=== PATIENT | male | born 1970 | race African-American/Black ===

== ENCOUNTER → 2017-11-11 | Outpatient (CLI) | payer OTHER ==
[2017-11-11 14:01] LABS: BASO % 0.3 % (0.0-1.0); EOS # 0.3 10^3/uL (0.0-0.50); EOS % 4.5 % (0.0-3.0); HEMATOCRIT 42.9 % (42.0-52.0); HEMOGLOBIN 14.4 g/dl (14.0-18.0); IMMATURE GRANULOCYTE % 0.3 % (0-3.0); LYMPH # 2.4 10^3/uL (1.5-4.5); LYMPH % 36.8 % (24.0-44.0); MEAN CORPUSCULAR HEMOGLOBIN 29.6 pg (27.0-33.0); MEAN CORPUSCULAR HGB CONC 33.6 g/dl (32.0-36.5); MEAN CORPUSCULAR VOLUME 88.3 fl (80.0-96.0); MONO # 0.4 10^3/uL (0.0-0.8); MONO % 6.3 % (0.0-5.0); NEUTROPHILS # 3.4 10^3/uL (1.8-7.7); NEUTROPHILS % 51.8 % (36.0-66.0); PLATELET COUNT, AUTOMATED 323 10^3/uL (150-450); RED BLOOD COUNT 4.86 10^6/uL (4.30-6.10); WHITE BLOOD COUNT 6.5 10^3/uL (4.0-10.0)
[2017-11-11 14:24] LABS: TOTAL 25(OH) VITAMIN D 30.2 NG/ML (30.0-100.0)
[2017-11-11 14:46] LABS: ALBUMIN 4.3 GM/DL (3.2-5.2); ALBUMIN/GLOBULIN RATIO 1.26 (1.00-1.93); ALKALINE PHOSPHATASE 84 U/L (45-117); ALT/SGPT 41 U/L (12-78); ANION GAP 8 MEQ/L (8-16); AST/SGOT 23 U/L (7-37); BILIRUBIN,TOTAL 0.4 MG/DL (0.2-1.0); BLOOD UREA NITROGEN 12 MG/DL (7-18); CALCIUM LEVEL 9.3 MG/DL (8.5-10.1); CARBON DIOXIDE LEVEL 28 MEQ/L (21-32); CHLORIDE LEVEL 105 MEQ/L (98-107); CHOLESTEROL LEVEL 203 MG/DL (<200); CHOLESTEROL RISK RATIO 4.142 (<5); CREATININE FOR GFR 0.94 MG/DL (0.70-1.30); GLOMERULAR FILTRATION RATE > 60.0 (>60); GLUCOSE, FASTING 104 MG/DL (70-100); HDL CHOLESTEROL 49 MG/DL (>40); LDL CHOLESTEROL 138.6 MG/DL (<100); NON-HDL-C 154 MG/DL; POTASSIUM SERUM 4.6 MEQ/L (3.5-5.1); SODIUM LEVEL 141 MEQ/L (136-145); TOTAL PROTEIN 7.7 GM/DL (6.4-8.2); TRIGLYCERIDES LEVEL 77 MG/DL (<150)
== END ==
LOC: M SMT 08:17
DX: J45.20 Mild intermittent asthma, uncomplicated (principal); R03.0 Elevated blood-pressure reading, without diagnosis of hypertension; E78.2 Mixed hyperlipidemia; E55.9 Vitamin D deficiency, unspecified

== ENCOUNTER → 2018-03-28 | Outpatient (CLI) | payer OTHER ==
[2018-04-08 14:45] LABS: MISCELLANEOUS TEST LAB See Separate Report
== END ==
LOC: M SMT 11:14
DX: M05.79 Rheumatoid arthritis with rheumatoid factor of multiple sites without organ or systems involvement (principal)

== ENCOUNTER → 2018-05-20 | Outpatient (REF) | payer OTHER ==
[2018-05-20 12:01] LABS: ESTIMATED AVERAGE GLUCOSE 117 MG/DL (60-110); HEMOGLOBIN A1c 5.7 %
[2018-05-20 12:17] LABS: ALBUMIN 4.2 GM/DL (3.2-5.2); ALBUMIN/GLOBULIN RATIO 1.27 (1.00-1.93); ALKALINE PHOSPHATASE 71 U/L (45-117); ALT/SGPT 40 U/L (12-78); ANION GAP 8 MEQ/L (8-16); AST/SGOT 24 U/L (7-37); BILIRUBIN,TOTAL 0.4 MG/DL (0.2-1.0); BLOOD UREA NITROGEN 12 MG/DL (7-18); CALCIUM LEVEL 9.2 MG/DL (8.5-10.1); CARBON DIOXIDE LEVEL 29 MEQ/L (21-32); CHLORIDE LEVEL 103 MEQ/L (98-107); CHOLESTEROL LEVEL 193 MG/DL (<200); CHOLESTEROL RISK RATIO 4.106 (<5); GLOMERULAR FILTRATION RATE > 60.0 (>60); GLUCOSE, FASTING 88 MG/DL (70-100); HDL CHOLESTEROL 47 MG/DL (>40); NON-HDL-C 146 MG/DL; POTASSIUM SERUM 4.4 MEQ/L (3.5-5.1); PSA SCREENING 0.63 NG/ML (< 4.0); SODIUM LEVEL 140 MEQ/L (136-145); TOTAL PROTEIN 7.5 GM/DL (6.4-8.2); TRIGLYCERIDES LEVEL 125 MG/DL (<150)
== END ==
LOC: M SFHCLERA 10:09
DX: E66.09 Other obesity due to excess calories (principal); Z12.5 Encounter for screening for malignant neoplasm of prostate
CPT/HCPCS: 84443

== ENCOUNTER → 2018-10-20 | Outpatient (CLI) | payer OTHER ==
--- NOTE | 2018-10-20 18:40 | REP ---
Clinical: Polyarthralgia. Technique: Single AP weightbearing view of the right and left knee. Findings: The joint spaces are relatively symmetric and normal for age. No overt osteoarthritic degenerative changes are appreciated. Specifically, no spurring/osteophytosis, chondrocalcinosis, or significant joint space narrowing. No subchondral heterogeneity or cystic changes are appreciated. No obvious periarticular swelling. Impression: Symmetric age-appropriate examination. Electronically Signed by Harsha Awan MD 10/20/2018 06:31 P
--- NOTE | 2018-10-20 18:45 | REP ---
Clinical: Polyarthralgia. Technique: AP, lateral, bilateral oblique views of the right and left hand. Findings: No acute fracture or dislocation. No significant arthritic degenerative changes are appreciated. Surrounding soft tissues are unremarkable. Impression: Normal, symmetric age-appropriate examination. Electronically Signed by Harsha Awan MD 10/20/2018 06:38 P
== END ==
LOC: M LRY 10:31
PROVIDERS: ATTEND Family Medicine
DX: M25.50 Pain in unspecified joint (principal)
CPT/HCPCS: 73130; 73565; 80053; 85025; 85652; 86038; 86140; 86200; 86431; 90471; 90686; G0463

== ENCOUNTER → 2018-10-20 | Outpatient (REF) | payer OTHER ==
[2018-10-20 17:07] LABS: C REACTIVE PROTEIN QUANTITATIV 0.37 MG/DL (0.00-0.30); RHEUMATOID FACTOR QUANT < 10.0 IU/ML (<15.0)
[2018-10-20 17:08] LABS: ALBUMIN 4.2 GM/DL (3.2-5.2); ALT/SGPT 34 U/L (12-78); BILIRUBIN,TOTAL 0.4 MG/DL (0.2-1.0); BLOOD UREA NITROGEN 15 MG/DL (7-18); CALCIUM LEVEL 9.9 MG/DL (8.5-10.1); CARBON DIOXIDE LEVEL 28 MEQ/L (21-32); CHLORIDE LEVEL 102 MEQ/L (98-107); CREATININE FOR GFR 0.99 MG/DL (0.70-1.30); GLOMERULAR FILTRATION RATE > 60.0 (>60); GLUCOSE, FASTING 98 MG/DL (70-100); POTASSIUM SERUM 4.7 MEQ/L (3.5-5.1); SODIUM LEVEL 138 MEQ/L (136-145); TOTAL PROTEIN 8.3 GM/DL (6.4-8.2)
[2018-10-20 17:12] LABS: BASO # 0.1 10^3/uL (0.0-0.2); BASO % 0.4 % (0.0-1.0); EOS % 0.2 % (0.0-3.0); HEMATOCRIT 43.6 % (42.0-52.0); HEMOGLOBIN 14.9 g/dl (13.5-17.5); LYMPH # 2.2 10^3/uL (1.5-4.5); LYMPH % 17.8 % (24.0-44.0); MEAN CORPUSCULAR HEMOGLOBIN 29.6 pg (27.0-33.0); MEAN CORPUSCULAR HGB CONC 34.2 g/dl (32.0-36.5); MEAN CORPUSCULAR VOLUME 86.5 fl (80.0-96.0); MONO # 0.6 10^3/uL (0.0-0.8); NEUTROPHILS # 9.4 10^3/uL (1.8-7.7); NEUTROPHILS % 75.6 % (36.0-66.0); PLATELET COUNT, AUTOMATED 432 10^3/uL (150-450); RED BLOOD COUNT 5.04 10^6/uL (4.30-6.10); WHITE BLOOD COUNT 12.4 10^3/uL (4.0-10.0)
[2018-10-23 00:06] LABS: ANA (HEP2) Negative (.); CYCLIC CITRULLINATED PEPTIDE 7 units (0-19)
== END ==
LOC: M SFHCLERA 10:04
PROVIDERS: ATTEND Family Medicine
DX: M25.50 Pain in unspecified joint (principal)

== ENCOUNTER → 2018-10-22 | Outpatient (REF) | payer OTHER ==
[2018-10-28 00:19] LABS: HLA-B27 Negative (.); RNP ANTIBODY < 0.2 AI (0.0-0.9); SMITHS ANTIBODY < 0.2 AI (0.0-0.9); SSA SJOGRENS A <0.2 AI (0.0-0.9); SSB SJOGRENS B <0.2 AI (0.0-0.9)
== END ==
LOC: M SFHCPLAZ 13:45
PROVIDERS: ATTEND Internal Medicine Rheumatology
DX: M25.50 Pain in unspecified joint (principal); M54.41 Lumbago with sciatica, right side; R20.0 Anesthesia of skin

== ENCOUNTER → 2018-10-22 | Outpatient (CLI) | payer OTHER ==
--- NOTE | 2018-10-22 21:26 | REP ---
Clinical: Right-sided sciatica. Technique: AP, inlet, and bilateral oblique views of the sacrum. Findings: The bilateral sacroiliac joints are symmetric and normal in appearance. The osseous structures are intact and unremarkable. The surrounding soft tissues are normal. Impression: Normal symmetric bilateral sacroiliac joints. Electronically Signed by Harsha Awan MD 10/22/2018 09:17 P
== END ==
LOC: M LRY 13:39
PROVIDERS: ATTEND Internal Medicine Rheumatology
DX: M25.50 Pain in unspecified joint (principal); M54.41 Lumbago with sciatica, right side; R20.0 Anesthesia of skin
CPT/HCPCS: 72202; 81374; 82607; 84550; 86235; 86255; G0463

== ENCOUNTER → 2018-12-02 | Outpatient (REF) | payer OTHER ==
[2018-12-02 16:51] LABS: BASO % 0.5 % (0.0-1.0); EOS # 0.2 10^3/uL (0.0-0.50); EOS % 2.9 % (0.0-3.0); HEMATOCRIT 44.3 % (42.0-52.0); HEMOGLOBIN 14.3 g/dl (13.5-17.5); LYMPH # 2.6 10^3/uL (1.5-4.5); LYMPH % 35.1 % (24.0-44.0); MEAN CORPUSCULAR HGB CONC 32.3 g/dl (32.0-36.5); MEAN CORPUSCULAR VOLUME 89.9 fl (80.0-96.0); MONO # 0.6 10^3/uL (0.0-0.8); NEUTROPHILS # 3.9 10^3/uL (1.8-7.7); PLATELET COUNT, AUTOMATED 372 10^3/uL (150-450); RED BLOOD COUNT 4.93 10^6/uL (4.30-6.10); WHITE BLOOD COUNT 7.5 10^3/uL (4.0-10.0)
[2018-12-02 17:10] LABS: BLOOD UREA NITROGEN 12 MG/DL (7-18); CALCIUM LEVEL 9.3 MG/DL (8.5-10.1); CARBON DIOXIDE LEVEL 32 MEQ/L (21-32); CHLORIDE LEVEL 102 MEQ/L (98-107); CREATININE FOR GFR 0.95 MG/DL (0.70-1.30); GLOMERULAR FILTRATION RATE > 60.0 (>60); GLUCOSE, FASTING 84 MG/DL (70-100); POTASSIUM SERUM 4.9 MEQ/L (3.5-5.1); SODIUM LEVEL 140 MEQ/L (136-145)
== END ==
LOC: M SFHCLERA 12:25
PROVIDERS: ATTEND Family Medicine
DX: R07.9 Chest pain, unspecified (principal)

== ENCOUNTER → 2019-06-23 | Outpatient (REF) | payer OTHER ==
[~2019-06-23] MED LIST: AMLO5TAB6 PO; AUGM875T28 PO; DICL75TA PO
[2019-06-23 20:35] LABS: BLOOD UREA NITROGEN 18 MG/DL (7-18); CALCIUM LEVEL 9.7 MG/DL (8.5-10.1); CARBON DIOXIDE LEVEL 30 MEQ/L (21-32); CHLORIDE LEVEL 103 MEQ/L (98-107); CHOLESTEROL LEVEL 212 MG/DL (<200); CREATININE FOR GFR 1.01 MG/DL (0.70-1.30); GLOMERULAR FILTRATION RATE > 60.0 (>60); GLUCOSE, FASTING 82 MG/DL (70-100); HDL CHOLESTEROL 47 MG/DL (>40); LDL CHOLESTEROL 137 MG/DL (<100); NON-HDL-C 165 MG/DL; POTASSIUM SERUM 4.3 MEQ/L (3.5-5.1); SODIUM LEVEL 140 MEQ/L (136-145); TRIGLYCERIDES LEVEL 138 MG/DL (<150)
[2019-06-23 20:57] LABS: HEMOGLOBIN A1c 6.1 %
== END ==
LOC: M SFHCLERA 15:52
PROVIDERS: ATTEND Family Medicine
DX: I10 Essential (primary) hypertension (principal); E66.09 Other obesity due to excess calories
CPT/HCPCS: 80048; 80061; 83036; G0463

== ENCOUNTER 2019-07-05 01:24 | Emergency (ER) | payer OTHER ==
[~2019-07-05] VITALS: Ht 180.3 cm; Wt 102.3 kg
[2019-07-05] MEDS ORDERED: DICL75TA PO (01:30)
[2019-07-05] MEDS ORDERED: AUGM875T28 PO (01:30)
[2019-07-05] MEDS ORDERED: AMLO5TAB6 PO (01:30)
[2019-07-05 03:48] VITALS: BP 138/100
== END 2019-07-05 03:49 | disposition home or self-care (01) ==
LOC: M ED 01:24
DX: J34.89 Other specified disorders of nose and nasal sinuses (principal); I10 Essential (primary) hypertension; Z88.1 Allergy status to other antibiotic agents

== ENCOUNTER 2019-12-14 09:42 | Day surgery (SDC) | payer OTHER ==
[~2019-12-14] VITALS: Ht 180.3 cm; Wt 104.7 kg
[~2019-12-14 09:42] MED LIST changes: +ALL10TAB29 PO; +NS 1,000 ML IV ONE; +OMEP-221 PO
[2019-12-14] MEDS ORDERED: LIDOCAINE 2% INJ 100 MG/5 ML SDV (FOR ANES.) As Ordered ONE (11:21)
[2019-12-14] MEDS ORDERED: fentaNYL 100 MCG/2 ML INJECTION (J3010) As Ordered ONE (11:38)
[2019-12-14] MEDS ORDERED: propofoL 200 MG/20 ML VIAL As Ordered ONE ×2 (11:38→11:53)
--- NOTE | 2019-12-14 11:55 | ROOR ---
Patient Name: Dong Giraldo Procedure Date: 12/14/2019 11:35 AM Date of : 1970 Age: 49 Room: [facility] Gender: Male Note Status: Finalized Procedure: Upper Endoscopy + Biopsies Indications: Dysphagia, Chest pain (non cardiac) Providers: Keon Olivier MD Referring MD: [facility], Admin. Requesting Provider: Medicines: Monitored Anesthesia Care Complications: No immediate complications. Procedure: Pre-Anesthesia Assessment: - The heart rate, respiratory rate, oxygen saturations, blood pressure, adequacy of pulmonary ventilation, and response to care were monitored throughout the procedure. The Endoscope was introduced through the mouth, and advanced to the second part of duodenum. The upper GI endoscopy was accomplished without difficulty. The patient tolerated the procedure well. Findings: The Z-line was irregular and was found 40 cm from the incisors. Multiple biopsies were obtained with cold forceps for evaluation to rule out Howell's Esophagus randomly at the gastroesophageal junction. A small hiatal hernia was present. The exam of the esophagus was otherwise normal. The exam of the stomach was otherwise normal. The exam of the duodenum was otherwise normal. Impression: - Z-line irregular, 40 cm from the incisors. - Small hiatal hernia. - Multiple biopsies were obtained at the gastroesophageal junction. - The examination was otherwise normal. Recommendation: - Patient has a contact number available for emergencies. The signs and symptoms of potential delayed complications were discussed with the patient. Return to normal activities tomorrow. Written discharge instructions were provided to the patient. - Resume previous diet. - Discharge patient to home. - Follow an antireflux regimen. - Continue present medications. - Await pathology results. - Telephone GI clinic for pathology results in 1 week. - Return to referring physician. - The findings and recommendations were discussed with the patient's family. Keon Olivier MD Keon Olivier MD 12/14/2019 11:54:51 AM Electronically signed by Keon Olivier MD Number of Addenda: 0 Note Initiated On: 12/14/2019 11:35 AM Estimated Blood Loss: Estimated blood loss: none.
[2019-12-14 12:22] VITALS: BP 138/87
== END 2019-12-14 12:23 | disposition home or self-care (01) ==
LOC: M OPP 09:42
PROVIDERS: ATTEND Internal Medicine Gastroenterology
DX: R13.10 Dysphagia, unspecified (principal); R07.89 Other chest pain; K22.8 Other specified diseases of esophagus; K44.9 Diaphragmatic hernia without obstruction or gangrene; I10 Essential (primary) hypertension; K21.9 Gastro-esophageal reflux disease without esophagitis; R12 Heartburn; M54.89 Other dorsalgia; Z88.1 Allergy status to other antibiotic agents; Z91.030 Bee allergy status; Z79.899 Other long term (current) drug therapy
CPT/HCPCS: 43239; 88305; J3010

== ENCOUNTER 2020-03-25 14:13 | Emergency (ER) | payer OTHER ==
[~2020-03-25] VITALS: Ht 180.3 cm; Wt 106.6 kg
[~2020-03-25 14:13] MED LIST changes: -NS 1,000 ML IV ONE
[2020-03-25 14:44] LABS: BASO # 0.1 10^3/uL (0.0-0.2); BASO % 0.6 % (0.0-1.0); EOS # 0.3 10^3/uL (0.0-0.5); EOS % 3.8 % (0.0-3.0); HEMATOCRIT 43.4 % (42.0-52.0); HEMOGLOBIN 14.7 g/dl (13.5-17.5); LYMPH # 2.8 10^3/uL (1.5-5.0); LYMPH % 34.3 % (24.0-44.0); MEAN CORPUSCULAR HEMOGLOBIN 30.1 pg (27.0-33.0); MEAN CORPUSCULAR HGB CONC 33.9 g/dl (32.0-36.5); MEAN CORPUSCULAR VOLUME 88.8 fl (80.0-96.0); MONO # 0.5 10^3/uL (0.0-0.8); MONO % 6.3 % (0.0-5.0); NEUTROPHILS # 4.5 10^3/uL (1.5-8.5); NEUTROPHILS % 54.5 % (36.0-66.0); PLATELET COUNT, AUTOMATED 323 10^3/uL (150-450); RED BLOOD COUNT 4.89 10^6/uL (4.30-6.10); WHITE BLOOD COUNT 8.2 10^3/uL (4.0-10.0)
[2020-03-25 15:08] LABS: BLOOD UREA NITROGEN 11 MG/DL (7-18); CALCIUM LEVEL 9.8 MG/DL (8.5-10.1); CARBON DIOXIDE LEVEL 27 MEQ/L (21-32); CHLORIDE LEVEL 105 MEQ/L (98-107); CREATININE FOR GFR 1.17 MG/DL (0.70-1.30); GLOMERULAR FILTRATION RATE > 60.0 (>60); GLUCOSE, FASTING 122 MG/DL (70-100); POTASSIUM SERUM 3.9 MEQ/L (3.5-5.1); SODIUM LEVEL 139 MEQ/L (136-145)
--- NOTE | 2020-03-25 15:20 | REP ---
Portable chest x-ray: Sitting AP view. History: Chest pain. Comparison chest x-ray: March 14, 2012. Findings: Monitoring electrodes are seen. The lungs are well inflated and clear. The heart is not enlarged. Pulmonary vasculature is not increased. No bony abnormalities seen. Impression: Negative portable chest. Electronically Signed by Himanshu Maki MD 03/25/2020 03:12 P
[2020-03-25 16:07] LABS: FREE THYROXINE INDEX 3.2 % (1.4-3.8); T UPTAKE 37 % (33-40); THYROXINE (T4) 8.6 UG/DL (4.5-12.0)
[2020-03-25 18:10] LABS: CK-MB VALUE MASS 1.6 NG/ML (<3.6); CPK CREATINE PHOSPHOKINASE 289 U/L (39-308); MB/CK RELATIVE INDEX 0.55 (< OR =4); TROPONIN I < 0.02 NG/ML (< 0.10)
[2020-03-25 18:24] VITALS: BP 123/76
--- NOTE | 2020-03-25 20:43 | ECGEPIP ---
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
--- NOTE | 2020-03-25 20:57 | ECGEPIP ---
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
== END 2020-03-25 18:53 | disposition home or self-care (01) ==
LOC: M ED 14:13
DX: R00.2 Palpitations (principal); R07.89 Other chest pain; R06.02 Shortness of breath; I10 Essential (primary) hypertension; Z88.1 Allergy status to other antibiotic agents; Z91.030 Bee allergy status; Z79.899 Other long term (current) drug therapy

== ENCOUNTER → 2020-09-16 | Outpatient (CLI) | payer SELFPAY ==
[~2020-09-16] MED LIST changes: -ALL10TAB29 PO; +AMLO1TAB24 PO; -AMLO5TAB6 PO; +CETI-24 PO
== END ==
LOC: M LABSMTC 10:54
PROVIDERS: ATTEND Pediatrics
DX: Z20.828 Contact with and (suspected) exposure to other viral communicable diseases (principal)

== ENCOUNTER → 2023-01-09 | Outpatient (CLI) | payer OTHER ==
[~2023-01-09] MED LIST changes: -OMEP-221 PO; +OMEP40CA5 PO
[2023-01-09 15:15] LABS: BASO # 0.1 10^3/uL (0.0-0.2); BASO % 0.7 % (0.0-1.0); EOS # 0.3 10^3/uL (0.0-0.5); EOS % 3.3 % (0.0-3.0); HEMATOCRIT 41.7 % (42.0-52.0); HEMOGLOBIN 14.1 g/dl (13.5-17.5); LYMPH # 3.2 10^3/uL (1.5-5.0); LYMPH % 39.1 % (24.0-44.0); MEAN CORPUSCULAR HEMOGLOBIN 29.8 pg (27.0-33.0); MEAN CORPUSCULAR HGB CONC 33.8 g/dl (32.0-36.5); MEAN CORPUSCULAR VOLUME 88.2 fl (80.0-96.0); MONO # 0.5 10^3/uL (0.0-0.8); MONO % 6.6 % (2.0-8.0); NEUTROPHILS # 4.1 10^3/uL (1.5-8.5); NEUTROPHILS % 49.9 % (36.0-66.0); PLATELET COUNT, AUTOMATED 361 10^3/uL (150-450); RED BLOOD COUNT 4.73 10^6/uL (4.30-6.10); WHITE BLOOD COUNT 8.2 10^3/uL (4.0-10.0)
[2023-01-09 15:30] LABS: ERYTHROCYTE SEDIMENTATION RATE 9 mm/hr (0-20)
[2023-01-09 15:42] LABS: URIC ACID 6.8 MG/DL (3.7-9.2)
[2023-01-09 15:46] LABS: THYROID STIMULATING HORMONE 1.462 uIU/ML (0.55-4.78)
[2023-01-09 15:59] LABS: ALBUMIN 4.3 G/DL (3.2-5.2); ALKALINE PHOSPHATASE 97 U/L (46-116); ALT/SGPT 36 U/L (7.0-40); AST/SGOT 23 U/L (<34); BILIRUBIN,TOTAL 0.3 MG/DL (0.3-1.2); BLOOD UREA NITROGEN 11 MG/DL (9-23); CALCIUM LEVEL 9.3 MG/DL (8.5-10.1); CARBON DIOXIDE LEVEL 28 MMOL/L (20-31); CHLORIDE LEVEL 105 MMOL/L (98-107); CREATININE FOR GFR 0.97 MG/DL (0.70-1.30); GLOMERULAR FILTRATION RATE > 60.0 (>56); GLUCOSE, FASTING 104 MG/DL (60-100); POTASSIUM SERUM 4.2 MMOL/L (3.5-5.1); SODIUM LEVEL 141 MMOL/L (136-145); TOTAL PROTEIN 7.1 G/DL (5.7-8.2)
[2023-01-09 16:36] LABS: C REACTIVE PROTEIN QUANTITATIV < 0.40 MG/DL (<1.0)
[2023-01-09 16:38] LABS: RHEUMATOID FACTOR QUANT < 3.5 IU/ML (<14)
== END ==
LOC: M PLALAB 12:59
PROVIDERS: ATTEND Family Medicine
DX: M25.50 Pain in unspecified joint (principal)

== ENCOUNTER → 2023-06-10 | Outpatient (CLI) | payer OTHER | LOC: M PLAIMG 12:03 | PROVIDERS: ATTEND Internal Medicine | DX: M25.50 Pain in unspecified joint (principal) ==

== ENCOUNTER → 2023-09-16 | Outpatient (CLI) | payer OTHER | LOC: M RAD 13:00 | PROVIDERS: ATTEND Physician Assistant | DX: H34.212 Partial retinal artery occlusion, left eye (principal) ==

== ENCOUNTER → 2023-09-25 | Outpatient (CLI) | payer OTHER | LOC: M PLALAB 13:23 | PROVIDERS: ATTEND Internal Medicine | DX: E55.9 Vitamin D deficiency, unspecified (principal) ==

== ENCOUNTER → 2024-03-17 | Outpatient (REF) | payer OTHER ==
[2024-03-17 15:57] LABS: RSV AMPLIFICATION NEGATIVE (NEGATIVE)
== END ==
LOC: M SFHCPLAZ 15:04
PROVIDERS: ATTEND Physician Assistant Medical
DX: J06.9 Acute upper respiratory infection, unspecified (principal)

== ENCOUNTER → 2025-01-06 | Outpatient (REF) | payer OTHER | LOC: M LAB REF 14:10 | PROVIDERS: ATTEND Physician Assistant | DX: B34.9 Viral infection, unspecified (principal) ==

== ENCOUNTER → 2025-02-04 | Outpatient (REF) | payer OTHER | LOC: M SFHCRHEU 10:36 | PROVIDERS: ATTEND Internal Medicine | DX: M47.816 Spondylosis without myelopathy or radiculopathy, lumbar region (principal) ==

== ENCOUNTER → 2025-08-06 | Outpatient (CLI) | payer OTHER ==
[2025-08-09 14:34] LABS: EBV AB TO NUCLEAR ANTIGEN > 600.00 U/mL (<18.00); EBV VIRAL CAPSID AG IGG 287.00 U/mL (<18.00); EBV VIRAL CAPSID AG IGM < 36.00 U/mL (<36.00)
== END ==
LOC: M LAB 11:52
PROVIDERS: ATTEND Physician Assistant
DX: R53.83 Other fatigue (principal)